=== PATIENT | female | born 1955 ===

== ENCOUNTER 2021-08-18 05:30 | Day surgery (SDC) | payer OTHER ==
[~2021-08-18 05:30] MED LIST: CARAFATE1 GM PO; IMITREX50 MG PO; NEURONTIN800 MG PO; NORFLEX; PEPCID AC20 MG PO; RESTORIL30 MG PO; SYMBASTATIN PO; SYNTHROID88 MCG PO; ULTRACET PO; VASOTEC10 MG PO
[2021-08-18] MEDS ORDERED: PERCOCET 5-3251 EACH PO (09:42)
== END 2021-08-18 15:05 | disposition home or self-care (01) ==
LOC: CIR.AMB 05:30
PROVIDERS: ATTEND Surgery
DX: K64.8 Other hemorrhoids (principal); K64.4 Residual hemorrhoidal skin tags; Z20.822 Contact with and (suspected) exposure to COVID-19